=== PATIENT | female | born 1965 | race Caucasian/White ===

== ENCOUNTER 2018-06-04 09:41 | Emergency (ER) | payer MEDICARE ==
[~2018-06-04] VITALS: Ht 170.2 cm; Wt 117.5 kg
[~2018-06-04 09:41] MED LIST: AMBIEN10 MG PO; LEVOTHYROXINE88 MCG PO
--- OUTSIDE RECORDS SUMMARY | 2018-06-04 09:44 | XMS REPORT | Clinical Summary ---
Author Author [facility] Organization [facility] Address Unknown Phone Unavailable Care Team Providers Care Quenching Machine Operator Name Role Phone Kathy Bravo MD PCP Unavailable Allergies Comments Active Allergy Reactions Severity Noted Date Sulfa (Sulfonamide Anaphylaxis High 01/27/2013 Antibiotics) Tramadol Itching 09/04/2015 Medications End Date Status Medication Sig Dispensed Refills Start Date Active traZODone (DESYREL) 100 Take 100 mg 0 MG tablet by mouth nightly. Active levothyroxine (SYNTHROID, Take 88 mcg 0 LEVOTHROID) 88 MCG tablet by mouth Every morning on an empty stomach. Active venlafaxine (EFFEXOR-XR) Take 150 mg 0 150 MG 24 hr capsule by mouth daily. Active metoprolol (TOPROL-XL) 50 Take 50 mg by 0 MG 24 hr tablet mouth daily. Active LORazepam (ATIVAN) 0.5 MG Take 0.5 mg 0 tablet by mouth every 6 (six) hours as needed for Anxiety. Active pantoprazole (PROTONIX) Take 40 mg by 0 40 MG tablet mouth daily. Active fenofibrate Take 160 mg 0 (TRIGLIDE,LOFIBRA) 160 MG by mouth tablet daily. Active busPIRone (BUSPAR) 15 MG Take 15 mg by 0 tablet mouth 3 (three) times daily. Active lurasidone (LATUDA) 80 mg Take 80 mg by 0 Tab mouth daily. Active dapagliflozin (FARXIGA) 5 Take 5 mg by 0 mg tablet mouth daily. Active temazepam (RESTORIL) 7.5 Take 1 30 capsule 0 04/28/201 MG capsule capsule (7.5 6 mg total) by mouth every night as needed for Sleep. Max Daily Amount: 7.5 mg Active busPIRone (BUSPAR) 30 MG . 0 tablet 8 Active ranitidine (ZANTAC) 150 . 0 MG tablet 8 Active VESICARE 5 mg tablet . 0 8 Active topiramate (TOPAMAX) 50 . 0 MG tablet 8 09/04/2017 codeine-guaifenesin Take 5 mLs by 120 mL 0 (GUAIFENESIN AC) 10-100 mouth 3 8 mg/5 mL liquid (three) times daily as needed for Cough for up to 10 days. Max Daily Amount: 15 mLs 01/17/2018 acetaminophen-codeine Take 1-2 15 tablet 0 (TYLENOL #3) 300-30 mg tablets by 8 per tablet mouth every 6 (six) hours as needed for Pain for up to 10 days. Max Daily Amount: 8 tablets Active Problems Problem Noted Date Syncope 04/28/2016 Diabetes mellitus, type 2 04/28/2016 Essential hypertension 04/28/2016 Hypothyroidism 04/28/2016 GERD (gastroesophageal reflux disease) 04/28/2016 Chest pain, unspecified type 04/27/2016 Encounters Care Team Description Date Type Specialty Patrice Alonzo MD Epigastric pain (Primary Dx); Nausea; Type 2 diabetes mellitus without complication, unspecified whether halfway insulin use (HCC) 01/07/2018 Emergency Emergency Medicine 01/07/2018 Orders Only General Internal Medicine Mook Armstrong MD Upper respiratory tract infection, unspecified type (Primary Dx); Shortness of breath; Leukocytosis, unspecified type; Lactate blood increased 08/25/2017 Emergency Emergency Medicine 08/25/2017 Orders Only General Internal Medicine after 06/03/2017 Family History Medical History Relation Name Comments Unremarkable Father Cancer Mother Diabetes Mother Relation Name Status Comments Father Mother Social History Date Tobacco Use Types Packs/Day Years Used Never Smoker Smokeless Tobacco: Never Used Alcohol Use Drinks/Week oz/Week Comments No Sex Assigned at Date Recorded Not on file Industry Job Start Date Occupation Not on file Not on file Not on file Travel End Travel History Travel Start No recent travel history available. Last Filed Vital Signs Time Taken Vital Sign Reading 01/07/2018 3:35 PM CDT Blood Pressure 133/82 01/07/2018 3:35 PM CDT Pulse 85 01/07/2018 11:55 AM CDT Temperature 36.9 C (98.5 F) 01/07/2018 3:35 PM CDT Respiratory Rate 18 01/07/2018 3:35 PM CDT Oxygen Saturation 99% - Inhaled Oxygen - Concentration 01/07/2018 11:55 AM CDT Weight 117.5 kg (259 lb 1 oz) 01/07/2018 11:55 AM CDT Height 170.2 cm (5' 7") 01/07/2018 11:55 AM CDT Body Mass Index 40.57 Plan of Treatment Not on file Procedures Comments Procedure Name Priority Date/Time Associated Diagnosis ED ECG INTERPRETATION Routine 01/07/2018 3:[address] ABDOMEN/PELVIS WITH IV STAT 01/07/2018 CONTRAST 3:20 PM CDT ECG 12-LEAD Routine 01/07/2018 2:26 PM CDT Procedure Note - Interface, External Ris In - 01/07/2018 6:39 PM CDT Ventricula r Rate 84 BPM Atrial Rate 84 BPM P-R Interval 138 ms QRS Duration 86 ms Q-T Interval 368 ms QTC Calculatio n(Bazett) 434 ms P [place] 31 degrees R [place] 0 degrees T [place] 3 degrees Normal sinus rhythm Normal ECG When compared with ECG of 8 10:50, No significan t change was found ECG 12-LEAD Routine 01/07/2018 2:26 PM CDT BLOOD GAS, VENOUS STAT 01/07/2018 2:21 PM CDT URINALYSIS W/ MICROSCOPIC STAT 01/07/2018 2:21 PM CDT CBC W/PLT COUNT & AUTO STAT 01/07/2018 DIFFERENTIAL 2:20 PM CDT CREATINE KINASE (CK) STAT 01/07/2018 2:20 PM CDT RAPID TROPONIN I STAT 01/07/2018 2:20 PM CDT RAPID CK-MB STAT 01/07/2018 2:20 PM CDT KETONE, BLOOD STAT 01/07/2018 2:20 PM CDT BASIC METABOLIC PANEL (7) STAT 01/07/2018 2:20 PM CDT CBC W/PLT COUNT & AUTO STAT 01/07/2018 DIFFERENTIAL 2:20 PM CDT HEPATIC FUNCTION PANEL STAT 01/07/2018 2:20 PM CDT LIPASE STAT 01/07/2018 2:20 PM CDT ED ECG INTERPRETATION Routine 08/25/2017 2:59 PM INK TECHNICIAN LACTIC ACID, VENOUS, STAT 08/25/2017 WHOLE BLOOD 1:52 PM INK TECHNICIAN CBC W/PLT COUNT & AUTO STAT 08/25/2017 DIFFERENTIAL 11:09 AM INK TECHNICIAN RAPID TROPONIN I STAT 08/25/2017 11:09 AM INK TECHNICIAN COMPREHENSIVE METABOLIC STAT 08/25/2017 PANEL 11:09 AM INK TECHNICIAN LACTIC ACID, VENOUS, STAT 08/25/2017 WHOLE BLOOD 11:09 AM INK TECHNICIAN CBC W/PLT COUNT & AUTO STAT 08/25/2017 DIFFERENTIAL 11:09 AM INK TECHNICIAN ECG 12-LEAD STAT 08/25/2017 10:50 AM INK TECHNICIAN XR CHEST 1 VIEW STAT 08/25/2017 PORTABLE/BEDSIDE 10:25 AM INK TECHNICIAN after 06/03/2017 Results * ED ECG Interpretation (01/07/2018 3:55 PM CDT) Only the most recent of 2 results within the time period is included. Narrative Performed At Patrice Alonzo MD 01/07/20183:55 PM ECG/EKG Interpretation Date/Time: 01/07/2018 2:33 PM Performed by: PATRICE ALONZO Authorized by: PATRICE ALONZO The ECG was interpreted by ED physician. The ECG is interpreted as sinus rhythm. Rate is normal rate. Clinical Impression: normal ECG * CT abdomen/pelvis with IV contrast (01/07/2018 3:20 PM CDT) Narrative Performed At FINAL REPORT [facility] DOSE REDUCTION: The examination was performed according to departmental dose-optimization program which includes automated exposure control, adjustment of the mA and/or kV according to patient size and/or use of iterative reconstruction technique. TECHNIQUE: CT of the abdomen and pelvis with intravenous and oral contrast. COMPARISON: None Discussion: Lung bases are clear. There is diffusely decreased liver density consistent with fatty infiltration. No suspicious liver lesion. Spleen, pancreas, left adrenal gland appear unremarkable. There is a 1.6 cm right adrenal gland nodule. This is indeterminate, statistically likely benign adenoma. There are small bilateral renal cysts. There are 2 to 3 mm nonobstructing bilateral renal stones. Otherwise kidneys appear unremarkable. Moderate amount of stool throughout the colon seen. 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 No small or large bowel obstruction. The appendix is not well visualized. However there is no inflammatory stranding or fluid collection inthe right lower quadrant to suggest the presence of appendicitis. No ascites. No lymphadenopathy. Aorta and IVC are normal in caliber. The bladder, uterus and bilateral adnexa are unremarkable. No acute skeletal abnormality. Degenerative changes along the spine noted. IMPRESSION: 1. Decreased liver density consistent with fatty infiltration. 2. Small nonobstructive bilateral renal stones. Bilateral renal cysts. 3. 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 No small or large bowel obstruction. Signed: Tylor Pradhan MD Report Verified Date/Time:01/07/2018 15:47:38 Reading Location: [facility] Radiology Reading Room Procedure Note Interface, External Ris In - 01/07/2018 3:49 PM CDT FINAL REPORT DOSE REDUCTION: The examination was performed according to departmental dose-optimization program which includes automated exposure control, adjustment of the mA and/or kV according to patient size and/or use of iterative reconstruction technique. TECHNIQUE: CT of the abdomen and pelvis with intravenous and oral contrast. COMPARISON: None Discussion: Lung bases are clear. There is diffusely decreased liver density consistent with fatty infiltration. No suspicious liver lesion. Spleen, pancreas, left adrenal gland appear unremarkable. There is a 1.6 cm right adrenal gland nodule. This is indeterminate, statistically likely benign adenoma. There are small bilateral renal cysts. There are 2 to 3 mm nonobstructing bilateral renal stones. Otherwise kidneys appear unremarkable. Moderate amount of stool throughout the colon seen. 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 No small or large bowel obstruction. The appendix is not well visualized. However there is no inflammatory stranding or fluid collection in the right lower quadrant to suggest the presence of appendicitis. No ascites. No lymphadenopathy. Aorta and IVC are normal in caliber. The bladder, uterus and bilateral adnexa are unremarkable. No acute skeletal abnormality. Degenerative changes along the spine noted. IMPRESSION: 1. Decreased liver density consistent with fatty infiltration. 2. Small nonobstructive bilateral renal stones. Bilateral renal cysts. 3. 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 No small or large bowel obstruction. Signed: Tylor Pradhan MD Report Verified Date/Time: 01/07/2018 15:47:38 Reading Location: [facility] Radiology Reading Room Performing Organization Address City/[facility]/[employer] Phone Number GE RIS * ECG 12 lead (01/07/2018 2:26 PM CDT) Only the most recent of 2 results within the time period is included. Narrative Performed At Ventricular Rate 84 BPM GE MUSE Atrial Rate 84 BPM P-R Interval 138 ms QRS Duration 86 ms Q-T Interval 368 ms QTC Calculation(Bazett) 434 ms P [place] 31 degrees R [place] 0 degrees T [place] 3 degrees Normal sinus rhythm Normal ECG When compared with ECG of 25-AUG-2017 10:50, Ventricular rate has decreased from 116 bpm QT has shortened Confirmed by MD CURRAN YOCHAI ([id number]) on 01/08/2018 6:37:04 AM Procedure Note Interface, External Ris In - 01/08/2018 6:37 AM CDT Ventricular Rate 84 BPM Atrial Rate 84 BPM P-R Interval 138 ms QRS Duration 86 ms Q-T Interval 368 ms QTC Calculation(Bazett) 434 ms P [place] 31 degrees R [place] 0 degrees T [place] 3 degrees Normal sinus rhythm Normal ECG When compared with ECG of 25-AUG-2017 10:50, Ventricular rate has decreased from 116 bpm QT has shortened Confirmed by MD CURRAN YOCHAI ([id number]) on 01/08/2018 6:37:04 AM Performing Organization Address [facility]/Zipcode Phone Number GE MUSE * Urinalysis w/Microscopic (01/07/2018 2:21 PM CDT) Color, UA Yellow [facility] Clarity, UA Clear [facility] [place], [facility] Specific [place], UA 1.010 1.001 - 1.035 [facility] pH, UA 6.5 5.0 - 8.0 [facility] Protein, UA Negative Negative [facility] Glucose, UA Negative Negative [facility] Ketones, UA Negative Negative [facility] Bilirubin, UA Negative Negative [facility] [place] Blood, UA Trace (A) Negative [facility] Nitrite, UA Negative Negative [facility] Leukocytes, UA Negative Negative [facility] Urobilinogen, UA 0.2 0.2 - 1.0 mg/dL [facility] Bacteria, UA Moderate [facility] RBC, UA <5 /HPF [facility] WBC, UA <5 /HPF [facility] SQUAMOUS EPITHELIAL <5 /HPF [facility] [place] Specimen Source [facility] Specimen Urine - Urine, Voided Performing Organization Address [facility] Hospitalcode Phone Number [facility] [address] [place], [place] [phone] [facility] [place]AT[facility] * Blood gas, venous (01/07/2018 2:21 PM CDT) pH, Gopal 7.21 (L) 7.32 - 7.42 [facility] pCO2, Gopal 71 (HH) 41 - 51 mm Hg [facility] pO2, Gopal 38 25 - 40 mm Hg [facility] O2 Sat, Gopal 27.8 (L) 40.0 - 70.0 % [facility] HCO3, Gopal 28 21 - 29 mmol/L [facility] Base Excess, Gopal -1.9 -2.0 - 3.0 mmol/L [facility] [place] Specimen Blood - Arm, Left Performing Organization Address [facility] Hospitalconv Phone Number [facility] [address] [place] [address] [facility] [place] * Rapid Troponin I (01/07/2018 2:20 PM CDT) Only the most recent of 2 results within the time period is included. Rapid Troponin I <0.05 <0.05 ng/mL [facility] Specimen Blood Performing Organization Address City/[facility] Hospitalcode Phone Number [facility] [address] [place] [address] [facility], [facility] * Rapid CK-MB (01/07/2018 2:20 PM CDT) Rapid CKMB <1.0 0.0 - 4.3 ng/mL [facility] [place] Specimen Blood Performing Organization Address City/State/Zipcode Phone Number ARNOLDO [facility]OURGEO[facility] [address] [place] [address] [facility] * CBC with platelet count + automated diff (01/07/2018 2:20 PM CDT) Only the most recent of 2 results within the time period is included. WBC 11.6 (H) 4.0 - 10.0 10e3/L [facility] RBC 6.08 (H) 4.00 - 5.00 10e6/L [facility], [facility] Hemoglobin 14.6 12.0 - 15.0 g/dL [facility] Hematocrit 46.8 (H) 36.0 - 45.0 % [facility] MCV 77.0 (L) 82.0 - 99.0 fL [facility] MCH 24.0 (L) 27.0 - 33.0 pg [facility] MCHC 31.2 (L) 32.0 - 36.0 g/dL [facility] RDW 13.5 10.3 - 14.2 % [facility] Platelets 406 150 - 430 10e3/L [facility] MPV 8.2 6.5 - 10.5 fL [facility] % Neutros 60 % [facility] % Lymphs 29 % [facility] % Monos 8 % [facility] % Eos 2 % [facility] [place] % Baso 1 % [facility] # Neutros 6.94 1.80 - 8.00 10e3/L [facility] [place] # Lymphs 3.35 1.48 - 4.50 10e3/L [facility] [place] # Monos 0.97 0.00 - 1.30 10e3/L [facility] [place] # Eos 0.23 0.00 - 0.50 10e3/L [facility] [place] # Baso 0.10 0.00 - 0.20 10e3/L [facility] [place] Specimen Blood Performing Organization Address City/[facility] Hospitalconv Phone Number [address] [phone] [facility] * Lipase (01/07/2018 2:20 PM CDT) Lipase 81 40 - 240 U/L [facility] [place] Specimen Blood Performing Organization Address City/[facility] Hospitalconv Phone Number [address] [address] [facility] [place] * Cardiac Enzymes - CPK (01/07/2018 2:20 PM CDT) Total CK 32 25 - 235 U/L [facility] [place] Specimen Blood Performing Organization Address City/[facility] Hospitalcode Phone Number [place] [address] [place] [address] [facility] * Ketone, blood (01/07/2018 2:20 PM CDT) Ketones, Blood 0.1 <0.4 mmol/L [facility] [place] Specimen Blood Performing Organization Address [facility] Hospitalconv Phone Number [place] [phone] [place], [place] [phone] [facility] [place] * Hepatic function panel (01/07/2018 2:20 PM CDT) Protein, Total 7.2 6.0 - 8.5 gm/dL [facility] [place] Albumin 4.4 3.5 - 5.0 g/dL [facility] [place] Total Bilirubin 0.3 0.1 - 1.2 mg/dL [facility] [place] Bilirubin, Direct 0.3 0.0 - 0.4 mg/dL [facility] [place] Alkaline Phosphatase 97 30 - 115 U/L [facility] [place] AST 22 5 - 40 U/L [facility] [place] ALT 29 5 - 50 U/L [facility] [place] Specimen Blood Performing Organization Address City/[facility] Hospitalcode Phone Number [place] [phone] [place], [place] [phone] [facility] [place] * Basic Metabolic Panel (01/07/2018 2:20 PM CDT) Sodium 141 135 - 148 meq/L [facility] Potassium 3.6 3.6 - 5.5 meq/L [facility] [place] Chloride 101 98 - 106 meq/L [facility], [facility] CO2 24 24 - 32 meq/L [facility] [place] BUN 11 10 - 26 mg/dL [facility], [facility] Creatinine 0.68 0.50 - 1.20 mg/dL [facility], [facility] Glucose 92 70 - 110 mg/dL [facility] Calcium 9.6 8.5 - 10.5 mg/dL [facility] [place] EGFR 91Comment: ESTIMATED GFR IS mL/min/1.73 sq m [facility] NOT ACCURATE CREATININE [facility] CLEARANCE IN [facility] GLOMERULAR FILTRATION RATE. EMERGENCY CENTER, ESTIMATED GFR IS NOT BLANK LABORATORY APPLICABLE FOR DIALYSIS PATIENTS. Specimen Blood Performing Organization Address City/[facility]/Zipcode Phone Number [address] [address] [facility] [place] * Lactic acid, venous, whole blood (08/25/2017 1:52 PM INK TECHNICIAN) Only the most recent of 2 results within the time period is included. Lactate, Venous 2.2 0.5 - 2.2 mmol/L [facility] [place] Specimen Blood Narrative Performed At Effective 11/24/2015: Units/Reference Range Change [facility] New: 0.5-2.2 mmol/LPrevious: 5-18 mg/dL [facility] [place] Performing Organization Address City/[facility]/Zipcode Phone Number [facility] [address] [place] [address] [facility] [place] * Comprehensive metabolic panel (08/25/2017 11:09 AM INK TECHNICIAN) Protein, Total 7.0 6.0 - 8.5 gm/dL [facility], [facility] Albumin 4.1 3.5 - 5.0 g/dL [facility] Alkaline Phosphatase 81 30 - 115 U/L [facility] Total Bilirubin 0.4 0.1 - 1.2 mg/dL [facility] Sodium 141 135 - 148 meq/L [facility] Potassium 4.1 3.6 - 5.5 meq/L [facility] Chloride 108 (H) 98 - 106 meq/L [facility] CO2 18 (L) 24 - 32 meq/L [facility] BUN 10 10 - 26 mg/dL [facility] Creatinine 0.97 0.50 - 1.20 mg/dL [facility] Glucose 252 (H) 70 - 110 mg/dL [facility] Calcium 8.5 8.5 - 10.5 mg/dL [facility] AST 32 5 - 40 U/L [facility] ALT 35 5 - 50 U/L [facility] [place]ORY EGFR 61Comment: ESTIMATED GFR IS mL/min/1.73 sq m [facility] NOT ACCURATE CREATININE [facility] MEDICAL CLEARANCE IN PREDICTING CENTER, [facility] GLOMERULAR FILTRATION RATE. EMERGENCY CENTER, ESTIMATED GFR IS NOT BLANK LABORATORY APPLICABLE FOR DIALYSIS PATIENTS. Specimen Blood Performing Organization Address City/State/Zipcode Phone Number ARNOLDO BOURGEO[facility] [address] [place] [address] [facility] [place] * XR chest 1 view portable / bedside (08/25/2017 10:25 AM INK TECHNICIAN) Narrative Performed At FINAL REPORT GE RIS INDICATION: shortness of breath COMPARISON: April 27, 2016 TECHNIQUE: Chest radiograph, single view, portable technique. FINDINGS / IMPRESSION: There is no evidence of pneumonia or pulmonary edema. Cardiac and mediastinal contours are unremarkable. No pleural effusion or pneumothorax is demonstrated. Osseous structures are unremarkable. Signed: Anna Hoover MD Report Verified Date/Time:08/25/2017 10:30:09 Reading Location: [facility] [id number] Ortho Consult Reading Room Procedure Note Interface, External Ris In - 08/25/2017 10:32 AM INK TECHNICIAN FINAL REPORT INDICATION: shortness of breath COMPARISON: April 27, 2016 TECHNIQUE: Chest radiograph, single view, portable technique. FINDINGS / IMPRESSION: There is no evidence of pneumonia or pulmonary edema. Cardiac and mediastinal contours are unremarkable. No pleural effusion or pneumothorax is demonstrated. Osseous structures are unremarkable. Signed: Anna Hoover MD Report Verified Date/Time: 08/25/2017 10:30:09 Reading Location: [facility] B1 [id number] Ortho Consult Reading Room Performing Organization Address City/State/Zipcode Phone Number GE RIS after 06/03/2017 Insurance Payer Benefit Subscriber ID Type Phone Address Plan / Group [employer] xxxxxxxxxxx [employer] [facility] Contracted [place] ALL MEDICAID MEDICAID xxxxxxxxx Medicaid [place] Advance Directives For more information, please contact: [address] [address] Date Inactivated Comments Code Status Date Activated 04/28/2016 8:28 PM Full Code 04/27/2016 9:51 PM This code status was determined by: Patient
--- OUTSIDE RECORDS SUMMARY | 2018-06-04 09:44 | XMS REPORT ---
[facility] Phone Unavailable Care Team Providers Care Zmt Operator Name Role Phone HIREN ALONZO Unavailable Unavailable JOSE MANUEL DONOHUE Unavailable Unavailable Bhavin LINDSAY Unavailable Unavailable Les JENSEN Unavailable Unavailable Payers Payer Name Policy Type Policy Number Effective Date Expiration Date Problems This patient has no known problems. Allergies, Adverse Reactions, Alerts Allergy Name Allergy Type Status Severity Reaction(s) Onset Date Inactive Date Treating Clinician Comments Sulfa (Sulfonamide Antibiotics) DA Active U 2018-04-01 00:00:00 tramadol DA Active MO 2018-04-01 00:00:00 Sulfa (Sulfonamide Antibiotics) DA Active U 2017-04-03 00:00:00 tramadol DA Active MO 2017-04-03 00:00:00 Medications This patient has no known medications. Results Test Description Test Time Test Comments Text Results Atomic Results Result Comments CT, ABDOMEN 2018-01-07 15:47:00 Reason for exam:->abdominal painIs the patient ?->NoWhat is the patient's sedation requirement?->No Sedation FINAL REPORT DOSE REDUCTION: The examination was [...] No small or large bowel obstruction. Signed: [facility] Verified Date/Time: 01/07/2018 15:47:38 Reading Location: [facility] Radiology Reading Room W/PLT COUNT & AUTO DIFFERENTIAL 2018-01-07 15:23:00 WHITE BLOOD CELL COUNT (BEAKER) (test xplu=243) 11.6 10e3/i? L 4.0-10.0 RED BLOOD CELL COUNT (BEAKER) (test kuia=405) 6.08 10e6/i? L 4.00-5.00 HEMOGLOBIN (BEAKER) (test qrob=129) 14.6 g/dL 12.0-15.0 HEMATOCRIT (BEAKER) (test toig=801) 46.8 % 36.0-45.0 MEAN CORPUSCULAR VOLUME (BEAKER) (test ovcy=018) 77.0 fL 82.0-99.0 MEAN CORPUSCULAR HEMOGLOBIN (BEAKER) (test tjnk=451) 24.0 pg 27.0-33.0 MEAN CORPUSCULAR HEMOGLOBIN CONC (BEAKER) (test jpms=832) 31.2 g/dL 32.0-36.0 RED CELL DISTRIBUTION WIDTH (BEAKER) (test diup=684) 13.5 % 10.3-14.2 PLATELET COUNT (BEAKER) (test mvtf=175) 406 10e3/i? L 150-430 MEAN PLATELET VOLUME (BEAKER) (test mukp=174) 8.2 fL 6.5-10.5 NEUTROPHILS RELATIVE PERCENT (BEAKER) (test frsk=295) 60 % LYMPHOCYTES RELATIVE PERCENT (BEAKER) (test zvzi=600) 29 % MONOCYTES RELATIVE PERCENT (BEAKER) (test bqwq=699) 8 % EOSINOPHILS RELATIVE PERCENT (BEAKER) (test cpxf=884) 2 % BASOPHILS RELATIVE PERCENT (BEAKER) (test zwtk=082) 1 % NEUTROPHILS ABSOLUTE COUNT (BEAKER) (test beci=010) 6.94 10e3/i? L 1.80-8.00 LYMPHOCYTES ABSOLUTE COUNT (BEAKER) (test rwsy=569) 3.35 10e3/i? L 1.48-4.50 MONOCYTES ABSOLUTE COUNT (BEAKER) (test nlwy=198) 0.97 10e3/i? L 0.00-1.30 EOSINOPHILS ABSOLUTE COUNT (BEAKER) (test ztco=544) 0.23 10e3/i? L 0.00-0.50 BASOPHILS ABSOLUTE COUNT (BEAKER) (test ztjj=835) 0.10 10e3/i? L 0.00-0.20 RAPID [id number] 15:07:00* Test Item Value Reference Range Comments RAPID CKMB (BEAKER) (test cssx=9224) < ng/mL 0.0-4.3 RAPID TROPONIN [id number] 15:07:00* Test Item Value Reference Range Comments RAPID TROPONIN I (BEAKER) (test vtun=3006) < ng/mL <0.05 HEPATIC FUNCTION [id number] 14:59:00* Test Item Value Reference Range Comments TOTAL PROTEIN (BEAKER) (test somw=740) 7.2 gm/dL 6.0-8.5 ALBUMIN (BEAKER) (test uknr=0847) 4.4 g/dL 3.5-5.0 BILIRUBIN TOTAL (BEAKER) (test xjsp=213) 0.3 mg/dL 0.1-1.2 BILIRUBIN DIRECT (BEAKER) (test gllj=427) 0.3 mg/dL 0.0-0.4 ALKALINE PHOSPHATASE (BEAKER) (test cqaw=267) 97 U/L 30-115 AST (SGOT) (BEAKER) (test lovs=845) 22 U/L 5-40 ALT (SGPT) (BEAKER) (test neti=410) 29 U/L 5-50 BASIC METABOLIC [id number] 14:57:00* Test Item Value Reference Range Comments SODIUM (BEAKER) (test gwuz=416) 141 meq/L 135-148 POTASSIUM (BEAKER) (test hrac=796) 3.6 meq/L 3.6-5.5 CHLORIDE (BEAKER) (test gghk=382) 101 meq/L 98-106 CO2 (BEAKER) (test gjey=017) 24 meq/L 24-32 BLOOD UREA NITROGEN (BEAKER) (test xnzo=100) 11 mg/dL 10-26 CREATININE (BEAKER) (test rhfu=467) 0.68 mg/dL 0.50-1.20 GLUCOSE RANDOM (BEAKER) (test drgr=415) 92 mg/dL 70-110 CALCIUM (BEAKER) (test fxef=987) 9.6 mg/dL 8.5-10.5 EGFR (BEAKER) (test vmyt=9245) 91 mL/min/1.73 sq m ESTIMATED GFR IS NOT ACCURATE CREATININE CLEARANCE IN PREDICTING GLOMERULAR FILTRATION RATE. ESTIMATED GFR IS NOT APPLICABLE FOR DIALYSIS PATIENTS. CREATINE KINASE (CK)2018-01-07 14:57:00* Test Item Value Reference Range Comments CREATINE KINASE TOTAL (BEAKER) (test vaaq=763) 32 U/L 25-235 [id number] 14:57:00* Test Item Value Reference Range Comments LIPASE (BEAKER) (test dmec=338) 81 U/L 40-240 KETONE, [id number] 14:57:00* Test Item Value Reference Range Comments KETONES, BLOOD (BEAKER) (test rkns=6428) 0.1 mmol/L <0.4 URINALYSIS W/ [id number] 14:55:00* Test Item Value Reference Range Comments COLOR (BEAKER) (test agzc=072) Yellow CLARITY (BEAKER) (test zcup=735) Clear SPECIFIC GRAVITY UA (BEAKER) (test ehen=548) 1.010 1.001-1.035 PH UA (BEAKER) (test tqth=441) 6.5 5.0-8.0 PROTEIN UA (BEAKER) (test rgvm=965) Negative Negative GLUCOSE UA (BEAKER) (test pjfx=280) Negative Negative KETONES UA (BEAKER) (test cnrp=222) Negative Negative BILIRUBIN UA (BEAKER) (test uqfj=978) Negative Negative BLOOD UA (BEAKER) (test nssu=815) Trace Negative NITRITE UA (BEAKER) (test ofvl=037) Negative Negative LEUKOCYTE ESTERASE UA (BEAKER) (test modw=321) Negative Negative UROBILINOGEN UA (BEAKER) (test bqok=839) 0.2 mg/dL 0.2-1.0 BACTERIA (BEAKER) (test fusx=223) Moderate RBC UA-MANUAL (BEAKER) (test nfil=1238) <5 /HPF WBC UA-MANUAL (BEAKER) (test jnda=5085) <5 /HPF SQUAMOUS EPITHELIAL MANUAL (BEAKER) (test tdtt=2230) <5 /HPF SOURCE(BEAKER) (test pwcc=9549) BLOOD GAS, [id number] 14:37:00* Test Item Value Reference Range Comments PH VENOUS (BEAKER) (test eugr=631) 7.21 7.32-7.42 PCO2 VENOUS (BEAKER) (test xddm=838) 71 mm Hg 41-51 PO2 VENOUS (BEAKER) (test lypp=787) 38 mm Hg 25-40 O2 SATURATION VENOUS (BEAKER) (test llfm=595) 27.8 % 40.0-70.0 HCO3 VENOUS (BEAKER) (test bsfx=450) 28 mmol/L 21-29 BASE EXCESS VENOUS (BEAKER) (test kxkq=163) -1.9 mmol/L -2.0-3.0 LACTIC ACID, VENOUS, WHOLE [id number] 14:56:00* Test Item Value Reference Range Comments LACTATE BLOOD VENOUS (2) (BEAKER) (test epdw=4985) 2.2 mmol/L 0.5-2.2 Effective 11/24/2015: Units/Reference Range ChangeNew: 0.5-2.2 mmol/L Previous: 5 -18 mg/dLRAPID TROPONIN [id number] 11:39:00* Test Item Value Reference Range Comments RAPID TROPONIN I (BEAKER) (test ekpq=3035) < ng/mL <0.05 LACTIC ACID, VENOUS, WHOLE [id number] 11:33:00* Test Item Value Reference Range Comments LACTATE BLOOD VENOUS (2) (BEAKER) (test czpj=8439) 3.2 mmol/L 0.5-2.2 Effective 11/24/2015: Units/Reference Range ChangeNew: 0.5-2.2 mmol/L Previous: 5 -18 mg/dLCOMPREHENSIVE METABOLIC [id number] 11:32:00* Test Item Value Reference Range Comments TOTAL PROTEIN (BEAKER) (test cela=011) 7.0 gm/dL 6.0-8.5 ALBUMIN (BEAKER) (test ivlk=1077) 4.1 g/dL 3.5-5.0 ALKALINE PHOSPHATASE (BEAKER) (test ferb=463) 81 U/L 30-115 BILIRUBIN TOTAL (BEAKER) (test djot=774) 0.4 mg/dL 0.1-1.2 SODIUM (BEAKER) (test rsnm=448) 141 meq/L 135-148 POTASSIUM (BEAKER) (test vzwq=538) 4.1 meq/L 3.6-5.5 CHLORIDE (BEAKER) (test eryz=307) 108 meq/L 98-106 CO2 (BEAKER) (test sumr=777) 18 meq/L 24-32 BLOOD UREA NITROGEN (BEAKER) (test rabd=592) 10 mg/dL 10-26 CREATININE (BEAKER) (test bnok=007) 0.97 mg/dL 0.50-1.20 GLUCOSE RANDOM (BEAKER) (test ykej=831) 252 mg/dL 70-110 CALCIUM (BEAKER) (test eyeo=607) 8.5 mg/dL 8.5-10.5 AST (SGOT) (BEAKER) (test iwdw=281) 32 U/L 5-40 ALT (SGPT) (BEAKER) (test qbnx=377) 35 U/L 5-50 EGFR (BEAKER) (test zait=7775) 61 mL/min/1.73 sq m ESTIMATED GFR IS NOT ACCURATE CREATININE CLEARANCE IN PREDICTING GLOMERULAR FILTRATION RATE. ESTIMATED GFR IS NOT APPLICABLE FOR DIALYSIS PATIENTS. CBC W/PLT COUNT & AUTO [id number] 11:16:00* Test Item Value Reference Range Comments WHITE BLOOD CELL COUNT (BEAKER) (test mmsc=954) 10.1 10e3/ L 4.0-10.0 RED BLOOD CELL COUNT (BEAKER) (test gxfw=603) 5.58 10e6/ L 4.00-5.00 HEMOGLOBIN (BEAKER) (test qkxk=686) 14.3 g/dL 12.0-15.0 HEMATOCRIT (BEAKER) (test avsb=828) 43.1 % 36.0-45.0 MEAN CORPUSCULAR VOLUME (BEAKER) (test dsev=724) 77.1 fL 82.0-99.0 MEAN CORPUSCULAR HEMOGLOBIN (BEAKER) (test qdzm=744) 25.6 pg 27.0-33.0 MEAN CORPUSCULAR HEMOGLOBIN CONC (BEAKER) (test ccex=358) 33.1 g/dL 32.0-36.0 RED CELL DISTRIBUTION WIDTH (BEAKER) (test tyyy=700) 15.2 % 10.3-14.2 PLATELET COUNT (BEAKER) (test mxpe=402) 272 10e3/ L 150-430 MEAN PLATELET VOLUME (BEAKER) (test kekp=541) 8.1 fL 6.5-10.5 NEUTROPHILS RELATIVE PERCENT (BEAKER) (test fddx=826) 74 % LYMPHOCYTES RELATIVE PERCENT (BEAKER) (test hffl=084) 19 % MONOCYTES RELATIVE PERCENT (BEAKER) (test jerw=211) 4 % EOSINOPHILS RELATIVE PERCENT (BEAKER) (test lyxb=074) 2 % BASOPHILS RELATIVE PERCENT (BEAKER) (test show=993) 1 % NEUTROPHILS ABSOLUTE COUNT (BEAKER) (test btng=382) 7.53 10e3/ L 1.80-8.00 LYMPHOCYTES ABSOLUTE COUNT (BEAKER) (test yphe=523) 1.87 10e3/ L 1.48-4.50 MONOCYTES ABSOLUTE COUNT (BEAKER) (test yyrt=498) 0.43 10e3/ L 0.00-1.30 EOSINOPHILS ABSOLUTE COUNT (BEAKER) (test juqr=955) 0.24 10e3/ L 0.00-0.50 BASOPHILS ABSOLUTE COUNT (BEAKER) (test azgj=034) 0.06 10e3/ L 0.00-0.20 RAD, CHEST, 1 VIEW, NON [id number] 10:30:00Reason for exam:->shortness of breathIs the patient ?->UnknownShould this be performed at the bedside?- >NoFINAL REPORT INDICATION: shortness of breath COMPARISON: April 27, 2016 TECHNIQUE: Chest radiograph, single view, portable technique. FINDINGS / IMPRESSION: There is no evidence of pneumonia or pulmonary edema. Cardiac and mediastinal contours are unremarkable. No pleural effusion or pneumothorax is demonstrated. Osseous structures are unremarkable. Signed: Sunil Hoover MDReport Verified Date/Time: 08/25/2017 10:30:09 Reading Location: [address] Ortho Consult Reading Room Basic Metabolic Panel 2016-09-29 11:11:00* Test Item Value Reference Range Comments Sodium (test code=NA) 136 mmol/L 135-145 Potassium (test code=K) 4.4 mmol/L 3.5-5.1 Chloride (test code=CL) 98 mmol/L 98-105 Carbon Dioxide (test code=CO2) 24 mmol/L 22-29 Glucose (test code=GLU) 89 mg/dL 70-115 Blood Urea Nitrogen (test code=BUN) 10 mg/dL 6-20 Creatinine (test code=CREAT) 0.7 mg/dL 0.5-0.9 Calcium (test code=CA) 9.4 mg/dL 8.3-10.5 BUN/Creatinine Ratio (test code=BCRATIO) 14.3 Anion Gap (test code=AGAP) 14 mmol/L 7-16 Estimated GFR (test code=GFR) >60 mL/min/1.73m2 eGFR (estimated Glomerular Filtration Rate) is an estimated value,calculated from the patient's serum creatinine using the MDRD equation.It is NOT the patient's actual GFR. The eGFR provides a more clinicallyuseful measure of kidney disease than serum creatinine alone.This calculation takes sex and race into account, if the informationis provided. If the race is not provided, and the patient isAfrican-Mexican, multiply by 1.212. If sex is not provided, and thepatient is female, multiply by 0.742. Results for patients <18 years ofage have not been validated by the MDRD study and should be interpretedwith caution.eGFR Result Interpretation:eGFR > or=60 is in the Normal RangeeGFR < 60 may mean kidney diseaseeGFR < 15 may mean kidney failureRanges recommended by the National Kidney Foundat ion,http://nkdep.nih.gov CT ABDOMEN/PELVIS WO [place] [address] Patient Name: NATHALIE CAGLE MR #: [id number] : 1965 Age/Sex: 51/F Req #: [id number] Adm Physician: Ordered by: KELLY HOSKINS MD Report #: [id number] Location: ER Room/Bed: Procedure: [id number] CT/CT ABDOMEN/PELVIS SHIRA collins Date: Exam Time: REPORT STATUS: Signed E XAM: CT Abdomen and Pelvis WITHOUT contrast INDICATION: S r/o stone ri ght upper quadrant pain. COMPARISON: CT abdomen and pelvis 07/21/2012 TECHNI QUE: Abdomen and pelvis were scanned utilizing a multidetector helical scanner from the lung base to the pubic symphysis without administration of IV contra st. Absence of intravenous contrast decreases sensitivity for detection of foc al lesions and vascular pathology. Coronal and sagittal reformations were obta ined. Stone protocol is performed. IV CONTRAST: None ORAL CONTRAST : Water COMPLICATIONS: None RADIATION DOSE: Total D LP: 855 mGy*cm Estimated effective dose: (DLP x 0.015 x size factor) mSv CTDIvol has been reviewed. It is below the limits set by the Radiation Protocol Committee (RPC). FINDINGS: LINES and TUBES: None. LOWER THORAX: Unremarkable HEPATOBILIARY: No focal hepatic lesions. No bili kalyn ductal dilation. GALLBLADDER: There are cholecystectomy clips. S PLEEN: No splenomegaly. PANCREAS: No focal masses or ductal dilatation. ADRENALS: 1.6 cm right adrenal nodule with density measuring -8 Hounsfield units consistent with benign adenoma. KIDNEYS/URETERS: No hydronephr osis. No cystic or solid mass lesions. New 0.3 cm and 0.2 cm stone in the upp er pole of the right kidney. Enlarging 0.5 cm stone in the lower pole of the r ight kidney, previously 0.1 cm. Unchanged 2 tiny right renal stones in the low er pole. Two 1-mm stones in the upper pole of the left kidney and 0.4 cm stone in the lower pole left kidney, which are new. 2 other new stones in lower pole of the left kidney. GI TRACT: Postoperative changes of previous gastric s urgery, which appears to be a Joss-en-Y gastric bypass. The gastric pouch is r ather large measuring 7.3 x 13.3 x 6 cm. No abnormal distention, wall thickeni ng, or evidence of bowel obstruction. Appendix is not visualized. P ELVIC ORGANS/BLADDER: Unremarkable. LYMPH NODES: No lymphadenopathy. V ESSELS: Unremarkable. PERITONEUM / RETROPERITONEUM: No free air or fluid. BONES: Bilateral L5 pars defect with grade 1 anterolisthesis, which is unc hanged. Schmorl's node defect in T9, T10, and T11 vertebral bodies. SOFT TI SSUES: Unremarkable. IMPRESSION: 1. 5 right and 5 left clarissa l stones with the largest in the right kidney measuring 0.5 cm and the largest in the left kidney measuring 0.4 cm. No hydronephrosis. Majority of the stones are new since 2011. 2. Postoperative changes of Joss-en-Y gastric bypass. L arge gastric pouch. Signed by: Dr. Ezequiel Larry M.D. on 04/09/2017 7:33 PM Dictated By: EZEQUIEL LARRY MD 32 Transcribed By: JOSE on 04/09/171932 COPY TO: KELLY HOSKINS MD CHEST [facility] (PORTABLE) [place] [address] Patient Name: NATHALIE CAGLE MR #: [id number] : 1965 Age/Sex: 51/F Req #: [id number] Adm Physician: Ordered by: KELLY HOSKINS MD Report #: [id number] Location: ER Room/Bed: Procedure: [id number] DX/CHEST SINGLE (PORTABLE) Exam Date: Exam Time: REPORT STATUS: Signed PROCEDURE: CHEST SINGLE (PORTABLE) COMPARISON: None. INDICATIONS: RIGHT UP PER ABDOMINAL PAIN, NAUSEA TODAY FINDINGS: Lungs are well-inflated . No focal airspace consolidation, pleural effusion, or pneumothorax. Cardiom ediastinal contour and pulmonary vasculature are within normal limits for por table, AP technique. No acute osseous abnormality. CONCLUSION: No acute cardiopulmonary abnormality. Dictated by: Jacky Varner M.D. on 04/09/2017 at 18:15 Electronically approved by: Jacky Varner M.D. on at 18:15 Dictated By: JACKY VARNER MD Electronically Si gned By: JACKY VARNER MD on 04/09/171814 Transcribed By: MONI on 04/09/17 COPY TO: KELLY HOSKINS MD
[2018-06-04] MEDS ORDERED: KETOROLAC TROMETHAMINE 30 MG/ML VIAL IV STA (09:51)
[2018-06-04] MEDS ORDERED: SODIUM CHLORIDE 0.9% 1000ML 1,000 ML IV ONE (10:00)
[2018-06-04] MEDS ORDERED: DICYCLOMINE HCL 20 MG/2 ML VIAL IM ONE (10:00)
[2018-06-04 10:34] LABS: ALANINE AMINOTRANSFERASE 16 IU/L (0-55); ALBUMIN 4.3 g/dL (3.5-5.0); ALBUMIN/GLOBULIN RATIO 1.4 (0.8-2.0); ALKALINE PHOSPHATASE 74 IU/L (40-150); ANION GAP 18.2 mmol/L (8-16); BLOOD UREA NITROGEN 11 mg/dL (7-26); BUN/CREATININE RATIO 14 (6-25); CARBON DIOXIDE 19 mmol/L (22-29); CHLORIDE 105 mmol/L (98-107); CREATININE, SERUM 0.78 mg/dL (0.57-1.11); EST GLOMERULAR FILTRATION RATE > 60 ML/MIN (60-); GLUCOSE 112 mg/dL (74-118); POTASSIUM 4.2 mmol/L (3.5-5.1); SODIUM 138 mmol/L (136-145)
--- NOTE | 2018-06-04 10:37 | Diagnostic Imaging Report ---
PROCEDURE: CT ABDOMEN AND PELVIS WITHOUT CONTRAST TECHNIQUE: The abdomen and pelvis were scanned utilizing a multidetector helical scanner from the diaphragm to the lesser trochanter after the oral administration of water. No IV contrast was administered per renal stone protocol. Coronal and sagittal multiplanar reformations were obtained. COMPARISON: [facility], CT, CT ABDOMEN/PELVIS , 04/09/2017, 18:55. INDICATIONS: LEFT ABDOMEN PAIN/ suspect STONE FINDINGS: ABSENCE OF INTRAVENOUS CONTRAST DECREASES SENSITIVITY FOR DETECTION OF FOCAL LESIONS AND VASCULAR PATHOLOGY. LOWER THORAX: Focal subpleural ground glass opacity in the posterior right lower lobe, likely represents atelectasis (series 3, image 4) HEPATOBILIARY: Diffuse hepatic steatosis. No focal hepatic lesions. No biliary ductal dilation. Cholecystectomy clips. SPLEEN: No splenomegaly. PANCREAS: No focal masses or ductal dilatation. ADRENALS: Stable 1.6 and 0.6 cm right adrenal benign, lipid rich adenomas (series 3, image 41). Left adrenal gland is unremarkable.. KIDNEYS/URETERS: Right: * Punctate nonobstructing calculus in the interpolar region (series 3, image 70). * Stable 0.5 cm nonobstructing calculus in the mid to inferior aspect (series 3, image 78). * Interval increase in size of 0.3 cm nonobstructing calculus in the mid to inferior aspect (series 3, image 80), which was previously punctate. * Previously visualized nonobstructing calculi in the superior pole are not seen in the current exam. No ureteral calculi, hydronephrosis, or obstruction. No renal contour abnormalities or significant perinephric stranding. Left: * Stable 0.3 cm nonobstructing calculus in the superior pole (series 3, image 55). * Slight interval increase in size of 0.4 cm nonobstructing calculus in the mid to inferior aspect (series 3, image 71), which previously measured 0.3 cm. Stable adjacent punctate, nonobstructing calculus (series 3, image 71). * Stable 4 mm nonobstructing calculus in the inferior pole (series 3, image 77). * Adjacent previously visualized 0.2 mm nonobstructing calculus is not seen in the current exam. No ureteral calculi, hydronephrosis, or obstruction. Relatively stable 2.2 x 2.2 cm fluid density cyst in the interpolar region (series 3, image 65). The no abnormalities. No significant perinephric stranding. PELVIC ORGANS/BLADDER: No aggressive lytic lesions. Soft tissues are grossly unremarkable. PERITONEUM / RETROPERITONEUM: No free air or fluid. LYMPH NODES: No lymphadenopathy. VESSELS: Mild atherosclerotic calcification of the distal abdominal aorta. GI TRACT: No bowel dilation or evidence of obstruction. No pericolonic inflammatory changes. Stable postoperative changes of Joss-en-Y gastric bypass. BONES AND SOFT TISSUES: Unremarkable. IMPRESSION: 1. no ureteral or bladder calculi, hydronephrosis, or obstruction. 2. Bilateral nonobstructing calculi, as described. Although some of the previously described calculi are slightly larger in size, there is interval decrease in renal stone burden when compared to CT dated 04/09/2017. 3. Diffuse hepatic steatosis. Mohan Goel M.D. Dictated by: Mohan Goel M.D. on 06/04/2018 at 10:47 Electronically approved by: Mohan Goel M.D. on 06/04/2018 at 10:47
[2018-06-04 10:39] LABS: BASOPHILS # (AUTO) 0.1 (0.0-0.1); EOSINOPHILS # (AUTO) 0.2 (0.0-0.4); EOSINOPHILS % 2.1 % (0.0-6.0); HEMOGLOBIN 13.3 g/dL (12.0-16.0); LYMPHOCYTES # (AUTO) 2.4 (1.0-3.2); LYMPHOCYTES % 26.4 % (18.0-39.1); MEAN CORPUSCULAR HEMOGLOBIN 25.2 pg (28-32); MEAN CORPUSCULAR HGB CONC 31.7 g/dL (31-35); MEAN CORPUSCULAR VOLUME 79.7 fL (81-99); MONOCYTES # (AUTO) 0.7 (0.2-0.8); MONOCYTES % 7.1 % (4.4-11.3); NEUTROPHILS # (AUTO) 5.8 (2.1-6.9); NEUTROPHILS % 62.4 % (38.7-80.0); PLATELET COUNT 345 x10e3/uL (140-360); RED BLOOD COUNT 5.27 x10e6/uL (3.6-5.1); RED CELL DISTRIBUTION WIDTH 15.5 % (11.7-14.4)
[2018-06-04 10:44] LABS: CLARITY,URINE SL CLOUDY (CLEAR); COLOR,URINE YELLOW (YELLOW); PREGNANCY TEST, URINE NEGATIVE (NEGATIVE)
[2018-06-04 10:45] LABS: LEUKOCYTE ESTERASE ,URINE NEGATIVE (NEGATIVE); NITRITE,URINE NEGATIVE (NEGATIVE); PROTEIN,URINE DIPSTICK NEGATIVE (NEGATIVE)
[2018-06-04] MEDS ORDERED: KETOROLAC TROMETHAMINE 60 MG/2 ML VIAL IM ONE (10:45)
[2018-06-04 10:46] LABS: KETONES,URINE NEGATIVE (NEGATIVE)
[2018-06-04 10:47] LABS: BILIRUBIN,URINE NEGATIVE (NEGATIVE); URINE UROBILINOGEN 4 mg/dL (0.2 - 1)
[2018-06-04 11:06] LABS: RBC,URINE 0-5 /HPF (0-5)
[2018-06-04 11:07] LABS: BACTERIA,URINE MANY /HPF; EPITHELIAL CELLS,URINE MANY /LPF
[2018-06-04 13:10] VITALS: BP 133/79
== END 2018-06-04 13:11 | disposition home or self-care (01) ==
LOC: ER 09:41
DX: N20.0 Calculus of kidney (principal); K76.0 Fatty (change of) liver, not elsewhere classified
CPT/HCPCS: 36415; 74176; 80053; 81001; 81025; 85025; 99284; J0500; J1885